=== PATIENT | female | born 2000 | race African-American/Black ===

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

== ENCOUNTER 2023-09-27 17:41 | Inpatient (IN) | payer OTHER ==
[~2023-09-27] VITALS: Ht 172.7 cm; Wt 62.1 kg
[2023-09-27 18:02] VITALS: BP 107/93; PULSE 154; RESP 16; TEMP 97.8; O2SAT 100
[2023-09-27 18:42] LABS: BASOPHILS # (AUTO) 0.1 K/uL (0.00-0.22); BASOPHILS % (AUTO) 0.5 % (0.0-2.0); EOSINOPHILS % (AUTO) 0.2 % (0.0-4.0); HEMATOCRIT 46.9 % (36-48); HEMOGLOBIN 15.9 g/dL (12.0-16.0); LYMPHOCYTES # (AUTO) 1.4 K/uL (2.5-16.5); MEAN CORPUSCULAR HEMOGLOBIN 27 pg (27-31); MEAN CORPUSCULAR HGB CONC 34 g/dL (33-37); MEAN CORPUSCULAR VOLUME 78.9 fL (80-94); MONOCYTES # (AUTO) 0.8 K/uL (0.8-1.0); MONOCYTES % (AUTO) 7.1 % (1.7-9.3); NEUTROPHILS # (AUTO) 8.7 K/uL (1.8-7.7); NEUTROPHILS % (AUTO) 79.2 % (42.2-75.2); PLATELET COUNT (AUTO) 235 K/uL (140-450); RED BLOOD CELL COUNT(AUTO) 5.94 MIL/uL (4.20-5.40); RED CELL DISTRIBUTION WIDTH 15.6 % (11.6-13.7)
[2023-09-27] MEDS: NACL 0.9% 1,000 ML IV SCH (18:54)
[2023-09-27 18:55] LABS: ALBUMIN 4.6 g/dL (3.4-5.0); BILIRUBIN,DIRECT 0.2 mg/dL (0.0-0.3); TOTAL BILIRUBIN 0.7 mg/dL (0.0-1.0); TOTAL PROTEIN, SERUM 9.5 g/dL (6.4-8.2)
[2023-09-27 19:05] LABS: ANION GAP 29.1 (8-16); CALCIUM 9.4 mg/dL (8.5-10.1); CARBON DIOXIDE 13.2 mmol/L (21-32); POTASSIUM 3.3 mmol/L (3.5-5.1)
[2023-09-27] MEDS: ONDANSETRON 4 MG/2 ML VIAL IVP ONE (19:11)
[2023-09-27] MEDS: PANTOPRAZOLE 40 MG INJ VIAL IVP ONE (19:59)
[2023-09-27] MEDS: NACL 0.9% 1,000 ML IV ONE (19:59)
[2023-09-27 20:00] VITALS: O2SAT 100
[2023-09-27] MEDS: DEXT 5% / NACL 0.45% 1,000 ML IV SCH (21:36)
[2023-09-27] MEDS ORDERED: MORPHINE SULFATE 2 MG/ML SYR IVP PRN (22:05)
[2023-09-27] MEDS ORDERED: MAG SULF 2000 MG/WATER PREMIX 50 ML IV PRN (22:05)
[2023-09-27] MEDS ORDERED: ACETAMINOPHEN 325 MG TAB PO PRN (22:05)
[2023-09-27] MEDS ORDERED: HYDROcodone/APAP 5/325 MG 1 TAB TAB PO PRN (22:05)
[2023-09-27] MEDS: ONDANSETRON 4 MG/2 ML VIAL IVP PRN (22:49)
[2023-09-27 23:10] VITALS: O2SAT 100
[2023-09-27] MEDS ORDERED: PANTOPRAZOLE 40 MG INJ VIAL ONE (23:24)
[2023-09-27] MEDS: PANTOPRAZOLE 80 MG in NACL 0.9% 100 ML IVP SCH (23:45)
[2023-09-28] VITALS (10 sets, daily range): BP systolic 98–121; BP diastolic 50–69; PULSE 72–102; RESP 14–18; TEMP 97–98.5; O2SAT 97–100
[2023-09-28 00:33] LABS: HEMATOCRIT 40.8 % (36-48); HEMOGLOBIN 13.4 g/dL (12.0-16.0); MEAN CORPUSCULAR HEMOGLOBIN 26 pg (27-31); MEAN CORPUSCULAR HGB CONC 33 g/dL (33-37); MEAN CORPUSCULAR VOLUME 79.8 fL (80-94); PLATELET COUNT (AUTO) 232 K/uL (140-450); RED BLOOD CELL COUNT(AUTO) 5.11 MIL/uL (4.20-5.40); RED CELL DISTRIBUTION WIDTH 15.5 % (11.6-13.7); WHITE BLOOD COUNT (AUTO) 11.5 K/uL (4.8-10.8)
[2023-09-28] MEDS: MELATONIN 3 MG TAB PO PRN (01:19)
[2023-09-28 07:33] LABS: BASOPHILS % (AUTO) 0.5 % (0.0-2.0); EOSINOPHILS % (AUTO) 0.1 % (0.0-4.0); HEMATOCRIT 38.4 % (36-48); HEMOGLOBIN 12.8 g/dL (12.0-16.0); LYMPHOCYTES # (AUTO) 1.3 K/uL (2.5-16.5); LYMPHOCYTES % (AUTO) 13.9 % (20.5-51.1); MEAN CORPUSCULAR HEMOGLOBIN 27 pg (27-31); MEAN CORPUSCULAR HGB CONC 33 g/dL (33-37); MEAN CORPUSCULAR VOLUME 79.5 fL (80-94); MONOCYTES # (AUTO) 1.2 K/uL (0.8-1.0); MONOCYTES % (AUTO) 13.6 % (1.7-9.3); NEUTROPHILS # (AUTO) 6.6 K/uL (1.8-7.7); NEUTROPHILS % (AUTO) 71.9 % (42.2-75.2); PLATELET COUNT (AUTO) 219 K/uL (140-450); RED BLOOD CELL COUNT(AUTO) 4.83 MIL/uL (4.20-5.40); RED CELL DISTRIBUTION WIDTH 15.6 % (11.6-13.7); WHITE BLOOD COUNT (AUTO) 9.1 K/uL (4.8-10.8)
[2023-09-28 08:04] LABS: ALBUMIN 3.4 g/dL (3.4-5.0); ANION GAP 18.9 (8-16); CALCIUM 8.4 mg/dL (8.5-10.1); CARBON DIOXIDE 18.6 mmol/L (21-32); CREATININE 0.7 mg/dL (0.6-1.3); MAGNESIUM 1.7 mg/dL (1.8-2.4); PHOSPHORUS 3.3 mg/dL (2.5-4.9); POTASSIUM 3.5 mmol/L (3.5-5.1); TOTAL BILIRUBIN 0.6 mg/dL (0.0-1.0); TOTAL PROTEIN, SERUM 7.1 g/dL (6.4-8.2)
[2023-09-28 13:51] LABS: HEMATOCRIT 37.6 % (36-48); HEMOGLOBIN 12.6 g/dL (12.0-16.0); MEAN CORPUSCULAR HEMOGLOBIN 27 pg (27-31); MEAN CORPUSCULAR HGB CONC 34 g/dL (33-37); MEAN CORPUSCULAR VOLUME 78.8 fL (80-94); PLATELET COUNT (AUTO) 218 K/uL (140-450); RED BLOOD CELL COUNT(AUTO) 4.77 MIL/uL (4.20-5.40); RED CELL DISTRIBUTION WIDTH 15.7 % (11.6-13.7); WHITE BLOOD COUNT (AUTO) 7.2 K/uL (4.8-10.8)
[2023-09-28] MEDS: MIDAZOLAM 5 MG/5 ML VIAL ONE (14:46)
[2023-09-28] MEDS: fentaNYL citrate 0.05 MG/ML VIAL ONE (14:48)
[2023-09-28] MEDS: METOCLOPRAMIDE 10 MG/2 ML INJ VIAL IVP SCH (16:42)
[2023-09-28 18:24] LABS: HEMATOCRIT 38.1 % (36-48); MEAN CORPUSCULAR HEMOGLOBIN 27 pg (27-31); MEAN CORPUSCULAR HGB CONC 34 g/dL (33-37); MEAN CORPUSCULAR VOLUME 78.2 fL (80-94); PLATELET COUNT (AUTO) 215 K/uL (140-450); RED BLOOD CELL COUNT(AUTO) 4.87 MIL/uL (4.20-5.40); RED CELL DISTRIBUTION WIDTH 15.8 % (11.6-13.7); WHITE BLOOD COUNT (AUTO) 7.6 K/uL (4.8-10.8)
[2023-09-28] MEDS: FAMOTIDINE 20 MG/2 ML VIAL IV SCH (20:23)
[2023-09-28] MEDS: AMITRIPTYLINE 10 MG TAB PO SCH (20:24)
[2023-09-29] VITALS: BP 109/65; PULSE 74; PULSE 89; RESP 18; TEMP 98; O2SAT 97
[2023-09-29 00:27] LABS: HEMATOCRIT 37.7 % (36-48); HEMOGLOBIN 12.5 g/dL (12.0-16.0); MEAN CORPUSCULAR HEMOGLOBIN 26 pg (27-31); MEAN CORPUSCULAR HGB CONC 33 g/dL (33-37); MEAN CORPUSCULAR VOLUME 78.6 fL (80-94); PLATELET COUNT (AUTO) 207 K/uL (140-450); RED CELL DISTRIBUTION WIDTH 15.5 % (11.6-13.7); WHITE BLOOD COUNT (AUTO) 6.7 K/uL (4.8-10.8)
[2023-09-29] MEDS: POLYETHYLENE GLYCOL 17 GM/PKT PO PRN (00:34)
[2023-09-29 04:00] VITALS: BP 113/67; PULSE 73; PULSE 79; RESP 18; TEMP 97.9; O2SAT 96
[2023-09-29 07:01] LABS: BASOPHILS % (AUTO) 0.6 % (0.0-2.0); EOSINOPHILS # (AUTO) 0.1 K/uL (0-0.4); HEMATOCRIT 36.3 % (36-48); HEMOGLOBIN 12.3 g/dL (12.0-16.0); LYMPHOCYTES # (AUTO) 1.4 K/uL (2.5-16.5); MEAN CORPUSCULAR HEMOGLOBIN 26 pg (27-31); MEAN CORPUSCULAR HGB CONC 34 g/dL (33-37); MEAN CORPUSCULAR VOLUME 78.2 fL (80-94); MONOCYTES # (AUTO) 0.9 K/uL (0.8-1.0); MONOCYTES % (AUTO) 13.2 % (1.7-9.3); NEUTROPHILS # (AUTO) 4.5 K/uL (1.8-7.7); NEUTROPHILS % (AUTO) 65.2 % (42.2-75.2); PLATELET COUNT (AUTO) 200 K/uL (140-450); RED BLOOD CELL COUNT(AUTO) 4.65 MIL/uL (4.20-5.40); RED CELL DISTRIBUTION WIDTH 15.5 % (11.6-13.7); WHITE BLOOD COUNT (AUTO) 6.8 K/uL (4.8-10.8)
[2023-09-29 07:22] LABS: ALBUMIN 3.1 g/dL (3.4-5.0); CALCIUM 8.2 mg/dL (8.5-10.1); CARBON DIOXIDE 23.8 mmol/L (21-32); CREATININE 0.7 mg/dL (0.6-1.3); MAGNESIUM 1.5 mg/dL (1.8-2.4); PHOSPHORUS 4.2 mg/dL (2.5-4.9); TOTAL BILIRUBIN 0.8 mg/dL (0.0-1.0); TOTAL PROTEIN, SERUM 6.4 g/dL (6.4-8.2)
[2023-09-29 07:33] LABS: POTASSIUM 2.8 mmol/L (3.5-5.1)
[2023-09-29] MEDS: KCL 20 MEQ IN 100 mL PREMIX 200 ML IV SCH (07:51)
[2023-09-29 08:21] VITALS: BP 108/68; PULSE 81; PULSE 96; RESP 18; TEMP 97.9; O2SAT 99
[2023-09-29 08:28] VITALS: PULSE 81; RESP 18; O2SAT 98
[2023-09-29] MEDS ORDERED: METO-485 PO (11:52)
[2023-09-29] MEDS ORDERED: AMIT10TA25 PO (11:53)
[2023-09-29] MEDS ORDERED: POTA10TA70 PO (12:01)
[2023-09-29] MEDS: POTASSIUM CHLORIDE 10 MEQ TABER PO PRN (12:38)
[2023-09-29 12:39] VITALS: BP 105/60; PULSE 96; RESP 18; TEMP 98
[2023-09-29 12:46] VITALS: BP 105/60; PULSE 92; RESP 18; TEMP 97; O2SAT 96
[2023-09-29] MEDS ORDERED: ONDA-188 PO (20:39)
== END 2023-09-29 14:00 | disposition home or self-care (01) | DRG 392 ==
LOC: MED 17:41 → MTU 20:21 → MMU 20:21 → MTU 09-28 06:03
PROVIDERS: ADMIT Family Medicine; ATTEND Family Medicine
PROC: 0DB68ZX Excision of Stomach, Via Natural or Artificial Opening Endoscopic, Diagnostic (ICD-10-PCS; principal; 2023-09-28 14:45)
DX: R11.2 Nausea with vomiting, unspecified (principal); R10.9 Unspecified abdominal pain; R73.03 Prediabetes; E28.2 Polycystic ovarian syndrome; Z79.899 Other long term (current) drug therapy
CPT/HCPCS: 36415; 70460; 71045; 76705; 80048; 80053; 80076; 81025; 82948; 83690; 83735; 84100; 85021; 85025; 86677; 87081; 96361; 96374; 96375; 99285; C9113; J2250; J2405; J2765; J3010; J3480; J3490; J7030; Q0092; Q9967

== ENCOUNTER 2023-09-29 16:36 | Inpatient (IN) | payer OTHER ==
[~2023-09-29] VITALS: Ht 167.6 cm; Wt 61.7 kg
[2023-09-29] MEDS: NACL 0.9% 1,000 ML IV SCH
[~2023-09-29 16:36] MED LIST: AMIT10TA25 PO; METO-485 PO; POTA10TA70 PO
[2023-09-29 16:39] VITALS: BP 91/63; PULSE 120; RESP 18; TEMP 97.4; O2SAT 97
[2023-09-29] MEDS: ONDANSETRON 4 MG/2 ML VIAL IVP ONE (17:05)
[2023-09-29 17:30] LABS: APPEARANCE,URINE CLEAR (CLEAR); BILIRUBIN,URINE NEGATIVE (NEGATIVE); BLOOD, URINE TRACE-I (NEGATIVE); COLOR,URINE YELLOW (YELLOW); LEUKOCYTE ESTERASE ,URINE NEGATIVE (NEGATIVE); NITRITE, URINE NEGATIVE (NEGATIVE); PH,URINE 6.5 (5.0-9.0); PROTEIN,URINE NEGATIVE (NEGATIVE); UGLUCOSE NEGATIVE (NEGATIVE); UROBILINOGEN,URINE 0.2 EU/dL (0.2 - 1)
[2023-09-29 17:38] LABS: AMPHETAMINE, URINE NEGATIVE ng/ml (NEG <=1000); BARBITURATE, URINE NEGATIVE ng/ml (NEG <=200); BENZODIAZEPINE, URINE NEGATIVE ng/mL (NEG <=200); CANNABINOID, URINE NEGATIVE ng/mL (NEG <=50); COCAINE, URINE NEGATIVE ng/mL (NEG <=300); OPIATE, URINE NEGATIVE ng/mL (NEG <=2000); PHENCYCLIDINE SCREEN,URINE NEGATIVE ng/mL (NEG <=25)
[2023-09-29 17:40] LABS: BACTERIA,URINE FEW /HPF (None Seen); SQUAMOUS EPITHELIAL CELL,UR 0-3 (FEW) /LPF (0-3 (FEW)); WBC,URINE 0-5 /HPF (0-5)
[2023-09-29 17:50] LABS: BASOPHILS # (AUTO) 0.2 K/uL (0.00-0.22); BASOPHILS % (AUTO) 1.9 % (0.0-2.0); EOSINOPHILS % (AUTO) 0.2 % (0.0-4.0); HEMATOCRIT 43.2 % (36-48); HEMOGLOBIN 14.4 g/dL (12.0-16.0); LYMPHOCYTES # (AUTO) 0.7 K/uL (2.5-16.5); MEAN CORPUSCULAR HEMOGLOBIN 26 pg (27-31); MEAN CORPUSCULAR HGB CONC 33 g/dL (33-37); MEAN CORPUSCULAR VOLUME 78.7 fL (80-94); MONOCYTES # (AUTO) 0.8 K/uL (0.8-1.0); MONOCYTES % (AUTO) 8.4 % (1.7-9.3); NEUTROPHILS # (AUTO) 8.1 K/uL (1.8-7.7); NEUTROPHILS % (AUTO) 82.5 % (42.2-75.2); PLATELET COUNT (AUTO) 238 K/uL (140-450); RED CELL DISTRIBUTION WIDTH 15.4 % (11.6-13.7); WHITE BLOOD COUNT (AUTO) 9.8 K/uL (4.8-10.8)
[2023-09-29] MEDS: NACL 0.9% 1,500 ML IV ONE (17:54)
[2023-09-29 18:03] LABS: ALBUMIN 4.3 g/dL (3.4-5.0); ANION GAP 16.1 (8-16); CALCIUM 9.5 mg/dL (8.5-10.1); CARBON DIOXIDE 24.4 mmol/L (21-32); CREATININE 0.8 mg/dL (0.6-1.3); POTASSIUM 3.5 mmol/L (3.5-5.1); TOTAL BILIRUBIN 0.9 mg/dL (0.0-1.0); TOTAL PROTEIN, SERUM 8.9 g/dL (6.4-8.2)
[2023-09-29] MEDS: NACL 0.9% 1,000 ML IV ONE (18:46)
[2023-09-29] MEDS: METOCLOPRAMIDE 10 MG/2 ML INJ VIAL IVP ONE (19:48)
[2023-09-29] MEDS ORDERED: ONDA-188 PO (20:39)
[2023-09-29 20:40] LABS: FREE T4 (FREE THYROXINE) 1.99 ng/dL (0.76-1.46); THYROID STIMULATING HORMONE 1.96 uIU/mL (0.34-3.74)
[2023-09-30] MEDS: METOCLOPRAMIDE 10 MG/2 ML INJ VIAL IVP PRN (05:22)
[2023-09-30] MEDS ORDERED: MAG SULF 2000 MG/WATER PREMIX 50 ML IV PRN (06:35)
[2023-09-30 07:43] LABS: BASOPHILS # (AUTO) 0.1 K/uL (0.00-0.22); BASOPHILS % (AUTO) 0.8 % (0.0-2.0); EOSINOPHILS # (AUTO) 0.1 K/uL (0-0.4); EOSINOPHILS % (AUTO) 1.3 % (0.0-4.0); HEMATOCRIT 35.6 % (36-48); LYMPHOCYTES # (AUTO) 1.2 K/uL (2.5-16.5); LYMPHOCYTES % (AUTO) 19.4 % (20.5-51.1); MEAN CORPUSCULAR HEMOGLOBIN 27 pg (27-31); MEAN CORPUSCULAR HGB CONC 34 g/dL (33-37); MEAN CORPUSCULAR VOLUME 78.7 fL (80-94); MONOCYTES # (AUTO) 0.9 K/uL (0.8-1.0); NEUTROPHILS % (AUTO) 64.5 % (42.2-75.2); PLATELET COUNT (AUTO) 190 K/uL (140-450); RED BLOOD CELL COUNT(AUTO) 4.53 MIL/uL (4.20-5.40); RED CELL DISTRIBUTION WIDTH 15.9 % (11.6-13.7); WHITE BLOOD COUNT (AUTO) 6.2 K/uL (4.8-10.8)
[2023-09-30 07:50] VITALS: O2SAT 95
[2023-09-30 07:56] LABS: ANION GAP 11.6 (8-16); CARBON DIOXIDE 26.6 mmol/L (21-32); CREATININE 0.5 mg/dL (0.6-1.3); POTASSIUM 3.2 mmol/L (3.5-5.1); TOTAL BILIRUBIN 0.7 mg/dL (0.0-1.0); TOTAL PROTEIN, SERUM 6.3 g/dL (6.4-8.2)
[2023-09-30 10:10] VITALS: BP 117/73; PULSE 98; RESP 18; TEMP 96.4; O2SAT 97
[2023-09-30] MEDS: ERYTHROMYCIN 500 MG in NACL 0.9% 100 ML IV SCH (12:00)
[2023-09-30] MEDS: POTASSIUM CHLORIDE 40 MEQ, LIDOCAINE 1% 25 MG in NACL 0.9% 250 ML IV ONE (12:56)
[2023-09-30 16:00] VITALS: BP 117/81; PULSE 98; RESP 16; TEMP 98; O2SAT 100
[2023-09-30] MEDS: POTASSIUM CHL 30 MEQ/ D5-1/2NS 1,000 ML IV SCH (16:41)
[2023-09-30] MEDS: MORPHINE SULFATE 2 MG/ML SYR ONE (18:10)
[2023-09-30] MEDS ORDERED: MORPHINE SULFATE 2 MG/ML SYR IVP ONE (18:10)
[2023-09-30] MEDS: ERYTHROMYCIN 100 MG in NACL 0.9% 100 ML IV SCH (20:21)
[2023-09-30] MEDS: AMITRIPTYLINE 10 MG TAB PO SCH (20:44)
[2023-09-30] MEDS ORDERED: FAMOTIDINE 20 MG/2 ML VIAL IV SCH (21:00)
[2023-10-01 04:50] VITALS: BP 120/61; PULSE 87; RESP 16; TEMP 98; O2SAT 100
[2023-10-01 07:05] LABS: BASOPHILS % (AUTO) 0.9 % (0.0-2.0); EOSINOPHILS # (AUTO) 0.2 K/uL (0-0.4); EOSINOPHILS % (AUTO) 3.4 % (0.0-4.0); HEMATOCRIT 37.7 % (36-48); HEMOGLOBIN 12.7 g/dL (12.0-16.0); LYMPHOCYTES # (AUTO) 1.5 K/uL (2.5-16.5); LYMPHOCYTES % (AUTO) 28.5 % (20.5-51.1); MEAN CORPUSCULAR HEMOGLOBIN 26 pg (27-31); MEAN CORPUSCULAR HGB CONC 34 g/dL (33-37); MEAN CORPUSCULAR VOLUME 78.7 fL (80-94); MONOCYTES # (AUTO) 0.7 K/uL (0.8-1.0); MONOCYTES % (AUTO) 12.7 % (1.7-9.3); NEUTROPHILS # (AUTO) 2.9 K/uL (1.8-7.7); NEUTROPHILS % (AUTO) 54.5 % (42.2-75.2); PLATELET COUNT (AUTO) 183 K/uL (140-450); RED BLOOD CELL COUNT(AUTO) 4.79 MIL/uL (4.20-5.40); RED CELL DISTRIBUTION WIDTH 15.9 % (11.6-13.7); WHITE BLOOD COUNT (AUTO) 5.4 K/uL (4.8-10.8)
[2023-10-01 07:25] LABS: ALBUMIN 3.2 g/dL (3.4-5.0); ANION GAP 11.2 (8-16); CALCIUM 8.4 mg/dL (8.5-10.1); CARBON DIOXIDE 27.1 mmol/L (21-32); CREATININE 0.5 mg/dL (0.6-1.3); POTASSIUM 3.3 mmol/L (3.5-5.1); TOTAL BILIRUBIN 0.7 mg/dL (0.0-1.0); TOTAL PROTEIN, SERUM 6.6 g/dL (6.4-8.2)
[2023-10-01 08:00] VITALS: PULSE 71; RESP 18; O2SAT 97
[2023-10-01 12:08] LABS: HEPATITIS A ANTIBODY IGM Negative (Negative); HEPATITIS B CORE AB TOTAL Negative (Negative); HEPATITIS B CORE, IGM Negative (Negative); HEPATITIS B SURFACE ANTIBODY Reactive (.); HEPATITIS B SURFACE ANTIGEN Negative (Negative); HEPATITIS C VIRUS ANTIBODY Non Reactive (Non Reactive)
[2023-10-01] MEDS: METOCLOPRAMIDE 10 MG/2 ML INJ VIAL IVP PRN (12:28)
[2023-10-01 14:07] LABS: HEPATITIS A ANTIBODY TOTAL Positive (Negative)
[2023-10-01] MEDS: POTASSIUM CHLORIDE 10 MEQ TABER PO PRN (16:12)
[2023-10-01 20:00] VITALS: PULSE 75; RESP 18; O2SAT 97
[2023-10-01] MEDS: AMITRIPTYLINE 25 MG TAB PO SCH (21:23)
[2023-10-01] MEDS: ZOLPIDEM 10 MG TAB PO PRN (23:43)
[2023-10-02 04:00] VITALS: BP 100/61; PULSE 86; RESP 16; TEMP 97.8; O2SAT 98
[2023-10-02 07:27] VITALS: BP 120/61; PULSE 75; RESP 18; TEMP 98; O2SAT 97
[2023-10-02 07:27] LABS: ALBUMIN 2.8 g/dL (3.4-5.0); ANION GAP 11.3 (8-16); CALCIUM 8.5 mg/dL (8.5-10.1); CARBON DIOXIDE 29.1 mmol/L (21-32); CREATININE 0.5 mg/dL (0.6-1.3); POTASSIUM 3.4 mmol/L (3.5-5.1); TOTAL BILIRUBIN 0.6 mg/dL (0.0-1.0)
[2023-10-02 07:39] LABS: BASOPHILS % (AUTO) 0.7 % (0.0-2.0); EOSINOPHILS # (AUTO) 0.2 K/uL (0-0.4); EOSINOPHILS % (AUTO) 3.6 % (0.0-4.0); HEMATOCRIT 34.8 % (36-48); HEMOGLOBIN 11.7 g/dL (12.0-16.0); LYMPHOCYTES # (AUTO) 1.7 K/uL (2.5-16.5); MEAN CORPUSCULAR HEMOGLOBIN 27 pg (27-31); MEAN CORPUSCULAR HGB CONC 34 g/dL (33-37); MEAN CORPUSCULAR VOLUME 78.9 fL (80-94); MONOCYTES # (AUTO) 0.8 K/uL (0.8-1.0); MONOCYTES % (AUTO) 13.7 % (1.7-9.3); NEUTROPHILS # (AUTO) 3.2 K/uL (1.8-7.7); PLATELET COUNT (AUTO) 188 K/uL (140-450); RED CELL DISTRIBUTION WIDTH 15.9 % (11.6-13.7)
[2023-10-02 08:00] VITALS: BP 94/45; PULSE 72; RESP 18; TEMP 97.4; O2SAT 100
[2023-10-02 12:00] VITALS: BP 100/62; PULSE 106; RESP 18; TEMP 97.4; O2SAT 99
== END 2023-10-02 15:33 | disposition home or self-care (01) | DRG 641 ==
LOC: MED 16:36 → MMU 23:01 → MTU 09-30 06:24 → OBSVTOIN 10-01 14:15
PROVIDERS: ADMIT Family Medicine; ATTEND Family Medicine
DX: E86.0 Dehydration (principal); R74.01 Elevation of levels of liver transaminase levels; F41.9 Anxiety disorder, unspecified; R00.0 Tachycardia, unspecified; F32.A Depression, unspecified; Z88.0 Allergy status to penicillin; Z91.010 Allergy to peanuts; Z79.899 Other long term (current) drug therapy
CPT/HCPCS: 96361; 96374; 96375; 99285; G0378; 36415; 71045; 78264; 78445; 80053; 80305; 81001; 83690; 84439; 84443; 84484; 85025; 85379; 86704; 86706; 86708; 86709; 86803; 87081; 87340; 93005; J1364; J2001; J2270; J2405; J2765; J3480; J7030